=== PATIENT | female | born 1945 | race Caucasian/White ===

== ENCOUNTER 2016-09-13 11:12 | Emergency (ER) | payer MEDICARE ==
[2016-09-13] MEDS ORDERED: oxyCOD/ACETAMIN 5 MG/325 MG TABLET PO STA (12:13)
[2016-09-13] MEDS ORDERED: oxyCOD/ACETAMIN 5 MG/325 MG TABLET PO ONE (12:17)
== END 2016-09-13 13:51 | disposition home or self-care (01) ==
DX: G89.18 Other acute postprocedural pain (principal); M25.561 Pain in right knee; M79.89 Other specified soft tissue disorders; Z96.651 Presence of right artificial knee joint; Z76.0 Encounter for issue of repeat prescription
CPT/HCPCS: 93971; 99283; A9270

== ENCOUNTER 2016-11-14 11:07 | Outpatient (CLI) | payer MEDICARE | END 2016-11-14 11:08 | disposition home or self-care (01) | DX: E03.9 Hypothyroidism, unspecified (principal) ==

== ENCOUNTER 2017-02-09 06:04 | Outpatient (CLI) | payer MEDICARE ==
[2017-02-09 19:50] LABS: THYROID STIMULATING HORMONE 1.73 uIU/mL (0.34-5.60)
[2017-02-09 23:09] LABS: MAGNESIUM 2.3 mg/dL (1.7-2.8)
== END 2017-02-09 06:05 | disposition home or self-care (01) ==
LOC: LAB.F 06:04
PROVIDERS: ATTEND Physician Assistant Medical
DX: E53.8 Deficiency of other specified B group vitamins (principal); R19.7 Diarrhea, unspecified; R25.2 Cramp and spasm; R53.83 Other fatigue; E03.9 Hypothyroidism, unspecified
CPT/HCPCS: 36415; 82607; 82728; 83540; 83735; 84443; 84466

== ENCOUNTER 2017-05-19 14:47 | Outpatient (CLI) | payer MEDICARE ==
[2017-05-19 18:44] LABS: ALBUMIN/GLOBULIN RATIO 1.3 (1.0-2.2); BILIRUBIN,TOTAL 0.6 mg/dL (0.2-1.0); CALCIUM 9.1 mg/dL (8.5-10.3); CREATININE 0.9 mg/dL (0.4-1.0); POTASSIUM 3.7 mmol/L (3.5-5.0)
== END 2017-05-19 14:48 | disposition home or self-care (01) ==
LOC: LAB.F 14:47
PROVIDERS: ATTEND Physician Assistant Medical
DX: Z51.81 Encounter for therapeutic drug level monitoring (principal); Z79.899 Other long term (current) drug therapy
CPT/HCPCS: 36415; 80053

== ENCOUNTER 2017-05-21 11:51 | Outpatient (CLI) | payer MEDICARE ==
[~2017-05-21 11:51] MED LIST: GADOBUTROL 7.5 MMOL/7.5 ML VIAL ONE
[2017-05-21] MEDS ORDERED: GADOBUTROL 7.5 MMOL/7.5 ML VIAL IVP ONE (12:47)
--- NOTE | 2017-05-21 15:12 | MRI Report ---
EXAM: MRI BRAIN WITHOUT AND WITH CONTRAST EXAM DATE: 05/21/2017 12:47 PM. CLINICAL HISTORY: 72-year-old with history of migraines presenting with auditory hallucinations and m racquel deficits COMPARISON: MR brain 10/13/2013. TECHNIQUE: Multiplanar, multisequence T1-weighted and fluid-sensitive MR sequences of the brain were performed. Sequences optimized for routine evaluation. Other: None. Without and with IV Contrast: 7.5 cc GADAVIST. FINDINGS: Brain Volume: Normal for age. Parenchyma/Dura: No acute parenchymal hemorrhage, mass, or midline shift. Mild bilateral areas of T2/ FLAIR signal hyperintensity seen that appear similar to 10/13/2013.No areas of restricted diffusion to suggest acute infarct. No definite abnormal areas of susceptibility artifact. No abnormal post-contr ast enhancement. Pituitary: Normal. Ventricles/Cisterns: No definite abnormal extra-axial fluid collection/mass seen. Ventricles and sulc i appear age appropriate. Cisterns are patent. Fluid is seen within Meckel's caves. Visualized internal auditor al auditory canals appear clear. Sinuses: Mild mucosal thickening of the ethmoid air cells. Mastoid air cells and middle ear cavities appear clear. Orbits: Changes of bilateral lens replacement. Vasculature: Visualized major intracranial flow voids appear maintained. Dural sinuses appear patent. Bones: Normal. Other: None. IMPRESSION: 1. No definite acute infarct, intracranial hemorrhage, mass, hydrocephalus, or abnormal postcontrast enhancement. 2. Mild white matter changes that appear similar to MR 10/13/2013 and while nonspecific may represent sequela of chronic small vessel ischemic disease. [facility] Referring Provider Line: [phone] SITE ID: [id number]
== END 2017-05-21 11:52 | disposition home or self-care (01) ==
LOC: DI 11:51
PROVIDERS: ATTEND Physician Assistant Medical
DX: G43.909 Migraine, unspecified, not intractable, without status migrainosus (principal); R44.0 Auditory hallucinations; R41.3 Other amnesia; R25.1 Tremor, unspecified
CPT/HCPCS: 70553; A9585

== ENCOUNTER 2017-08-10 10:15 | Outpatient (CLI) | payer MEDICARE ==
[2017-08-10 19:09] LABS: CHOL/HDL RATIO 4.4 (<4.4); CHOLESTEROL 337 mg/dL; HDL CHOLESTEROL 77 mg/dL; LDL/HDL RATIO 2.9 (<4.4); TRIGLYCERIDES 183 mg/dL; VLDL CHOLESTEROL 37 mg/dL
== END 2017-08-10 10:16 | disposition home or self-care (01) ==
LOC: LAB.F 10:15
PROVIDERS: ATTEND Physician Assistant Medical
DX: E78.5 Hyperlipidemia, unspecified (principal)
CPT/HCPCS: 36415; 80061

== ENCOUNTER 2017-10-13 13:09 | Emergency (ER) | payer MEDICARE ==
[2017-10-13 14:25] LABS: BASOPHILS # (AUTO) 0.1 10^3/uL (0.0-0.1); BASOPHILS % (AUTO) 1.1 %; EOSINOPHILS # (AUTO) 0.2 10^3/uL (0.0-0.7); HGB - HEMOGLOBIN 13.3 g/dL (12.0-16.0); MEAN CORPUSCULAR HEMOGLOBIN 32.7 pg (27.0-31.0); MEAN CORPUSCULAR HGB CONC 34.1 g/dL (32.0-36.0); MEAN CORPUSCULAR VOLUME 95.8 fL (81.0-99.0); MEAN PLATELET VOLUME 8.2 fL (7.9-10.8); MONOCYTES # (AUTO) 0.7 10^3/uL (0.0-1.0); MONOCYTES % (AUTO) 11.1 %; NEUTROPHILS % (AUTO) 50.8 %; PLT - PLATELET COUNT 204 10^3/uL (130-450); RED BLOOD COUNT 4.06 10^6/uL (4.20-5.40)
[2017-10-13 14:35] LABS: ALBUMIN 3.7 g/dL (3.2-5.5); ALBUMIN/GLOBULIN RATIO 1.1 (1.0-2.2); BILIRUBIN,TOTAL 0.6 mg/dL (0.2-1.0); CALCIUM 9.4 mg/dL (8.5-10.3); CREATININE 0.9 mg/dL (0.4-1.0); TOTAL PROTEIN 7.1 g/dL (6.7-8.2)
--- NOTE | 2017-10-13 14:39 | XRAY Preliminary Report ---
Exam: XR CHEST 2 VIEW X-RAY IMPRESSION: Normal 2-view chest radiography. [facility] SITE ID: [id number]
--- NOTE | 2017-10-13 14:39 | XRAY Report ---
EXAM: CHEST RADIOGRAPHY EXAM DATE: 10/13/2017 02:29 PM. CLINICAL HISTORY: Chest pain. COMPARISON: 11/17/2013. TECHNIQUE: 2 views. FINDINGS: Lungs/Pleura: No focal opacities evident. No pleural effusion. No pneumothorax. Normal volumes. Mediastinum: Heart and mediastinal contours are unremarkable. Other: None. IMPRESSION: Normal 2-view chest radiography. [facility] Referring Provider Line: [phone] SITE ID: [id number]
--- NOTE | 2017-10-13 14:58 | ED Physician Documentation ---
PD HPI CHEST PAIN - Stated complaint Stated Complaint: CHEST PAIN - Chief complaint Chief Complaint: Cardiac - History obtained from History obtained from: Patient - History of Present Illness Timing - onset: Last night Timing - onset during: Rest Timing - duration: Seconds, Minutes Timing - details: Intermittant Quality: Sharp Location: Substernal, Left chest Radiation: No: Jaw, Neck, Right upper extremity Improved by: Other (just went on its own) Associated symptoms: No: Shortness of air, Diaphoresis, Nausea, Vomiting, Feeling faint / dizzy, General Weakness, Palpitations, Cough Similar symptoms before: Has not had sx before Recently seen: Not recently seen Review of Systems Constitutional: denies: Fever, Chills Nose: denies: Rhinorrhea / runny nose, Congestion Throat: denies: Sore throat Respiratory: denies: Dyspnea, Cough, Wheezing GI: denies: Abdominal Pain, Abdominal Swelling, Nausea Skin: denies: Rash, Lesions Musculoskeletal: denies: Extremity swelling Neurologic: denies: Generalized weakness, Focal weakness, Numbness, Near syncope PD PAST MEDICAL HISTORY - Past Medical History Neuro: Headache/migraine AUTOMATIC PRESSER: Breast cancer Psych: Depression Musculoskeletal: Osteoarthritis - Past Surgical History Past Surgical History: Yes /AUTOMATIC PRESSER: Mastectomy - Present Medications Home Medications: Ambulatory Orders Medication Instructions Recorded Confirmed Buspirone HCl 0 mg PO .FREQ 01/20/13 09/13/16 Codeine/Butalbital/ASA/Caffein 1 each PO .FREQ 01/20/13 09/13/16 [Fiorinal-Cod [id number] Cap] Paroxetine HCl [Paxil] 0 mg PO .FREQA 01/20/13 09/13/16 Levothyroxine Sodium [Synthroid] 0 mg PO DAILY 09/13/16 09/13/16 Oxycodone HCl/Acetaminophen 2 each PO Q6H PRN #30 tablet 09/13/16 [Percocet 5-325 mg Tablet] oxyCODONE [Roxicodone] 2 tab PO Q4HR PRN 09/13/16 09/13/16 raNITIdine [Zantac] 1 tab PO BID 09/13/16 09/13/16 - Allergies Allergies/Adverse Reactions: Allergies Allergy/AdvReac Type Severity Reaction Status Date / Time No Known Drug Allergies Allergy Verified 10/13/17 13:20 - Social History Does the pt smoke?: No Smoking Status: Never smoker Does the pt drink ETOH?: Yes Does the pt have substance abuse?: No - Immunizations Immunizations are current?: Yes PD ED PE NORMAL - Vitals Vital signs reviewed: Yes - General General: Alert and oriented X 3, No acute distress, Well developed/nourished - HEENT HEENT: Pharynx benign - Neck Neck: Supple, no meningeal sign, No adenopathy - Cardiac Cardiac: RRR, No murmur - Respiratory Respiratory: Clear bilaterally, Other (no chestwall tenderness. ) - Abdomen Abdomen: Soft, Non tender - Derm Derm: Normal color, Warm and dry - Extremities Extremities: No deformity, No tenderness to palpate, No edema, No calf tenderness / cord - Neuro Neuro: Alert and oriented X 3, No motor deficit, Normal speech Results - Vitals Vitals: Oxygen O2 Source Room air - EKG (time done) 13:43 Rate: Rate (enter#) (63) Rhythm: NSR [place]: Normal Intervals: Normal NM QRS: Normal Ischemia: Normal ST segments. No: ST elevation c/w ischemia, ST depression - Labs Labs: Laboratory Tests 10/13/17 10/13/17 10/13/17 14:04 14:04 14:04 WBC 6.0 RBC 4.06 L Hgb 13.3 Hct 38.9 MCV 95.8 MCH 32.7 H MCHC 34.1 RDW 13.0 Plt Count 204 MPV 8.2 Neut # 3.0 Lymph # 2.0 [place] # 0.7 Eos # 0.2 Baso # 0.1 Absolute Nucleated RBC 0.00 Nucleated RBC % 0.0 Sodium 139 Potassium 4.1 Chloride 101 Carbon Dioxide 27 Anion Gap 11.0 BUN 13 Creatinine 0.9 Estimated GFR (MDRD) 62 L Glucose 84 Calcium 9.4 Total Bilirubin 0.6 AST 32 ALT 24 Alkaline Phosphatase 68 Troponin I < 0.04 Total Protein 7.1 Albumin 3.7 Globulin 3.4 Albumin/Globulin Ratio 1.1 Lipase 53 H - Rads (name of study) chest Radiology: Prelim report reviewed (normal) PD MEDICAL DECISION MAKING - ED course Complexity details: reviewed results, considered differential (intermittent fleeting chst pains. ), d/w patient Departure - Departure Disposition: 01 Home, Self Care Clinical Impression: Atypical chest pain Condition: Stable Record reviewed to determine appropriate education?: Yes Instructions: ED Chest Pain Atypical Unkn Cause Follow-Up: Bonnie Merida PA-C [Primary Care Provider] - Comments: Take some Aleve or ibuprofen 2 tablets twice daily for the next 5 or 6 days. Presume the pain you had was some inflammation in the chest wall around the lung related to the recent upper respiratory infection. No signs of more significant causes based on your EKG chest x-ray and blood tests. Recheck if not improved over the next few days or if you have worsening or other symptoms develop. Discharge Date/Time: 10/13/17 16:05
[2017-10-13] MEDS ORDERED: KETOROLAC 60 MG/2 ML VIAL IVP STA (15:21)
[2017-10-13 16:07] VITALS: BP 120/68
== END 2017-10-13 16:05 | disposition home or self-care (01) ==
LOC: ED 13:09
DX: R07.89 Other chest pain (principal); Z85.3 Personal history of malignant neoplasm of breast; Z90.10 Acquired absence of unspecified breast and nipple
CPT/HCPCS: 36415; 71046; 80053; 83690; 84484; 85025; 93005; 96374; 99283; 99284

== ENCOUNTER 2018-01-28 10:18 | Outpatient (CLI) | payer MEDICARE ==
[2018-01-28 18:16] LABS: BASOPHILS # (AUTO) 0.1 10^3/uL (0.0-0.1); BASOPHILS % (AUTO) 0.9 %; EOSINOPHILS # (AUTO) 0.2 10^3/uL (0.0-0.7); EOSINOPHILS % (AUTO) 2.8 %; HGB - HEMOGLOBIN 14.2 g/dL (12.0-16.0); LYMPHOCYTES # (AUTO) 1.9 10^3/uL (1.5-3.5); MEAN CORPUSCULAR HEMOGLOBIN 33.4 pg (27.0-31.0); MEAN CORPUSCULAR HGB CONC 33.4 g/dL (32.0-36.0); MEAN PLATELET VOLUME 8.9 fL (7.9-10.8); MONOCYTES # (AUTO) 0.6 10^3/uL (0.0-1.0); MONOCYTES % (AUTO) 9.9 %; NEUTROPHILS # (AUTO) 3.2 10^3/uL (1.5-6.6); NEUTROPHILS % (AUTO) 54.4 %; PLT - PLATELET COUNT 234 10^3/uL (130-450); RED BLOOD COUNT 4.26 10^6/uL (4.20-5.40); RED CELL DISTRIBUTION WIDTH 13.2 % (12.0-15.0); WHITE BLOOD COUNT 5.9 x10^3/uL (4.8-10.8)
[2018-01-28 18:39] LABS: ALBUMIN 3.8 g/dL (3.2-5.5); ALBUMIN/GLOBULIN RATIO 1.2 (1.0-2.2); ALKALINE PHOSPHATASE 67 IU/L (42-121); ALT ALANINE AMINOTRANSFERASE 33 IU/L (10-60); AST ASPARTATE AMINOTRANSFERASE 31 IU/L (10-42); BILIRUBIN,TOTAL 0.7 mg/dL (0.2-1.0); BUN - BLOOD UREA NITROGEN 15 mg/dL (6-20); CALCIUM 9.3 mg/dL (8.5-10.3); CARBON DIOXIDE - CO2 29 mmol/L (21-32); CHLORIDE 103 mmol/L (101-111); CHOL/HDL RATIO 4.3 (<4.4); CHOLESTEROL 299 mg/dL; CREATININE 0.8 mg/dL (0.4-1.0); GFR - MDRD 71 (>89); GLUCOSE 94 mg/dL (70-100); HDL CHOLESTEROL 70 mg/dL; LDL CHOLESTEROL,CALCULATED 197 mg/dL; LDL/HDL RATIO 2.8 (<4.4); SODIUM 140 mmol/L (135-145); VLDL CHOLESTEROL 32 mg/dL
== END 2018-01-28 10:19 | disposition home or self-care (01) ==
LOC: LAB.F 10:18
PROVIDERS: ATTEND Physician Assistant Medical
DX: E78.5 Hyperlipidemia, unspecified (principal); Z51.81 Encounter for therapeutic drug level monitoring; E03.9 Hypothyroidism, unspecified; Z79.899 Other long term (current) drug therapy
CPT/HCPCS: 36415; 80053; 80061; 83721; 84443; 85025

== ENCOUNTER 2018-05-06 12:58 | Outpatient (CLI) | payer MEDICARE ==
--- NOTE | 2018-05-18 09:30 | Mammography Report ---
Reason: SCREENING LEFT MAMMOGRAM. HX OF RIGHT MASTECTOMY Procedure Date: 05/06/2018 Accession Number: [id number] / [id number] Procedure: BENNY - Screening Mammo Dig LT CPT Code: FULL RESULT: EXAM: Screening Mammo Dig LT DATE: 05/06/2018 3:04 PM CLINICAL HISTORY: 73-year-old female with history of right breast cancer status post mastectomy. TECHNIQUE: Left breast CC and MLO views were obtained. COMPARISON: No comparisons are available at the time of interpretation. FINDINGS: The breasts demonstrate heterogeneously dense fibroglandular parenchyma bilaterally. Coarse typically benign calcifications are identified in the left breast. No suspicious masses, clustered microcalcifications, or regions of architectural distortion are identified. IMPRESSION: Benign findings RECOMMENDATION: Routine annual screening unless otherwise clinically indicated. If prior examinations are made available, an addendum could be issued comparing the current study to previous studies. BIRADS CATEGORY 2: Benign findings STANDARD QUALIFYING STATEMENTS: 1. This examination was not reviewed with the aid of Computer-Aided Detection (CAD). 2. A negative or benign imaging report should not delay biopsy if clinically suspicious findings are present. Consider surgical consultation if warrented. More than 5% of cancers are not identified by imaging. 3. Dense breasts may obscure an underlying neoplasm.
== END 2018-05-06 12:59 | disposition home or self-care (01) ==
LOC: DI 12:58
DX: Z12.31 Encounter for screening mammogram for malignant neoplasm of breast (principal); Z85.3 Personal history of malignant neoplasm of breast; Z90.11 Acquired absence of right breast and nipple

== ENCOUNTER 2018-11-03 15:05 | Outpatient (CLI) | payer MEDICARE ==
[2018-11-03 18:23] LABS: CREATININE 0.8 mg/dL (0.4-1.0)
== END 2018-11-03 15:06 | disposition home or self-care (01) ==
LOC: LAB.F 15:05
PROVIDERS: ATTEND Physician Assistant Medical
DX: Z01.812 Encounter for preprocedural laboratory examination (principal)
CPT/HCPCS: 36415; 82565

== ENCOUNTER 2019-01-11 11:29 | Outpatient (CLI) | payer MEDICARE ==
--- NOTE | 2019-01-11 13:33 | XRAY Report ---
Reason: ANKLE JOINT PAIN,RT Procedure Date: 01/11/2019 Accession Number: [id number] / [id number] Procedure: XR - Ankle 3 View RT CPT Code: FULL RESULT: EXAM: RIGHT ANKLE RADIOGRAPHY EXAM DATE: 01/11/2019 11:37 AM. CLINICAL HISTORY: Fall 3 weeks ago with right ankle pain and swelling. Pain is at the lateral malleolus. COMPARISON: None. TECHNIQUE: 3 views. FINDINGS: Bones: Normal. No fractures or bone lesions. Joints: Normal. No effusion. No subluxations. The ankle mortise is normally aligned. Soft Tissues: Soft tissue swelling is seen laterally. IMPRESSION: Soft tissue swelling with no fracture or dislocation detected. [facility]
== END 2019-01-11 11:30 | disposition home or self-care (01) ==
LOC: DI 11:29
PROVIDERS: ATTEND Physician Assistant Medical
DX: M25.571 Pain in right ankle and joints of right foot (principal); R22.41 Localized swelling, mass and lump, right lower limb

== ENCOUNTER 2019-03-24 14:01 | Outpatient (CLI) | payer OTHER, MEDICARE ==
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
== END 2019-03-24 14:02 | disposition home or self-care (01) ==
LOC: DI.S 14:01
PROVIDERS: ATTEND Chiropractor
DX: S20.219A Contusion of unspecified front wall of thorax, initial encounter (principal); M50.31 Other cervical disc degeneration, high cervical region; M47.812 Spondylosis without myelopathy or radiculopathy, cervical region; M43.12 Spondylolisthesis, cervical region
CPT/HCPCS: 72040

== ENCOUNTER 2019-06-17 14:14 | Outpatient (CLI) | payer MEDICARE ==
[2019-06-17 17:45] LABS: BASOPHILS % (AUTO) 0.7 %; EOSINOPHILS # (AUTO) 0.4 10^3/uL (0.0-0.7); EOSINOPHILS % (AUTO) 6.1 %; HGB - HEMOGLOBIN 13.7 g/dL (12.0-16.0); LYMPHOCYTES # (AUTO) 2.2 10^3/uL (1.5-3.5); LYMPHOCYTES % (AUTO) 36.7 %; MEAN CORPUSCULAR HEMOGLOBIN 31.3 pg (27.0-31.0); MEAN CORPUSCULAR HGB CONC 31.7 g/dL (32.0-36.0); MEAN CORPUSCULAR VOLUME 98.6 fL (81.0-99.0); MEAN PLATELET VOLUME 10.6 fL (7.9-10.8); MONOCYTES # (AUTO) 0.6 10^3/uL (0.0-1.0); MONOCYTES % (AUTO) 9.5 %; NEUTROPHILS # (AUTO) 2.8 10^3/uL (1.5-6.6); NEUTROPHILS % (AUTO) 46.7 %; PLT - PLATELET COUNT 284 10^3/uL (130-450); RED BLOOD COUNT 4.38 10^6/uL (4.20-5.40); RED CELL DISTRIBUTION WIDTH 12.4 % (12.0-15.0)
[2019-06-17 18:02] LABS: ALBUMIN 3.9 g/dL (3.2-5.5); ALBUMIN/GLOBULIN RATIO 1.2 (1.0-2.2); BILIRUBIN,TOTAL 0.8 mg/dL (0.2-1.0); CALCIUM 9.7 mg/dL (8.5-10.3); CREATININE 0.9 mg/dL (0.4-1.0); TOTAL PROTEIN 7.2 g/dL (6.7-8.2)
== END 2019-06-17 14:15 | disposition home or self-care (01) ==
LOC: LAB.S 14:14
PROVIDERS: ATTEND Physician Assistant Medical
DX: Z51.81 Encounter for therapeutic drug level monitoring (principal); Z79.899 Other long term (current) drug therapy; L71.0 Perioral dermatitis; L57.0 Actinic keratosis; E03.9 Hypothyroidism, unspecified
CPT/HCPCS: 36415; 80053; 84439; 84443; 85025

== ENCOUNTER 2019-11-14 13:24 | Outpatient (CLI) | payer MEDICARE | END 2019-11-14 13:25 | disposition home or self-care (01) | LOC: DI 13:24 | PROVIDERS: ATTEND Physician Assistant Medical | DX: I35.1 Nonrheumatic aortic (valve) insufficiency (principal); Z82.49 Family history of ischemic heart disease and other diseases of the circulatory system | CPT/HCPCS: 93306 ==

== ENCOUNTER 2020-02-22 10:24 | Outpatient (CLI) | payer MEDICARE ==
[2020-02-22 15:21] LABS: BASOPHILS % (AUTO) 0.6 %; EOSINOPHILS # (AUTO) 0.2 10^3/uL (0.0-0.7); EOSINOPHILS % (AUTO) 3.9 %; HGB - HEMOGLOBIN 14.4 g/dL (12.0-16.0); LYMPHOCYTES # (AUTO) 2.6 10^3/uL (1.5-3.5); LYMPHOCYTES % (AUTO) 42.4 %; MEAN CORPUSCULAR HEMOGLOBIN 32.4 pg (27.0-31.0); MEAN CORPUSCULAR VOLUME 98.2 fL (81.0-99.0); MEAN PLATELET VOLUME 10.8 fL (7.9-10.8); MONOCYTES # (AUTO) 0.6 10^3/uL (0.0-1.0); MONOCYTES % (AUTO) 10.3 %; NEUTROPHILS # (AUTO) 2.6 10^3/uL (1.5-6.6); NEUTROPHILS % (AUTO) 42.5 %; PLT - PLATELET COUNT 267 10^3/uL (130-450); RED BLOOD COUNT 4.44 10^6/uL (4.20-5.40); RED CELL DISTRIBUTION WIDTH 12.8 % (12.0-15.0); WHITE BLOOD COUNT 6.2 x10^3/uL (4.8-10.8)
[2020-02-22 15:47] LABS: ALBUMIN 4.3 g/dL (3.2-5.5); ALBUMIN/GLOBULIN RATIO 1.4 (1.0-2.2); ALKALINE PHOSPHATASE 79 IU/L (42-121); ALT ALANINE AMINOTRANSFERASE 19 IU/L (10-60); AST ASPARTATE AMINOTRANSFERASE 22 IU/L (10-42); BILIRUBIN,TOTAL 0.7 mg/dL (0.2-1.0); BUN - BLOOD UREA NITROGEN 16 mg/dL (6-20); CALCIUM 9.4 mg/dL (8.5-10.3); CARBON DIOXIDE - CO2 26 mmol/L (21-32); CHLORIDE 104 mmol/L (101-111); CHOL/HDL RATIO 5.2 (<4.4); CHOLESTEROL 312 mg/dL; CREATININE 0.8 mg/dL (0.4-1.0); GLUCOSE 105 mg/dL (70-100); HDL CHOLESTEROL 60 mg/dL; LDL CHOLESTEROL,CALCULATED 214 mg/dL; LDL/HDL RATIO 3.6 (<4.4); SODIUM 140 mmol/L (135-145); TOTAL PROTEIN 7.3 g/dL (6.7-8.2); VLDL CHOLESTEROL 38 mg/dL
== END 2020-02-22 10:25 | disposition home or self-care (01) ==
LOC: LAB.S 10:24
PROVIDERS: ATTEND Registered Nurse
DX: R63.4 Abnormal weight loss (principal); R53.83 Other fatigue; E03.9 Hypothyroidism, unspecified
CPT/HCPCS: 36415; 80053; 80061; 83721; 84443; 85025

== ENCOUNTER 2020-03-01 10:14 | Outpatient (CLI) | payer MEDICARE ==
[2020-03-01 15:34] LABS: BASOPHILS % (AUTO) 0.6 %; EOSINOPHILS # (AUTO) 0.2 10^3/uL (0.0-0.7); EOSINOPHILS % (AUTO) 3.9 %; HGB - HEMOGLOBIN 13.8 g/dL (12.0-16.0); LYMPHOCYTES % (AUTO) 40.1 %; MEAN CORPUSCULAR HGB CONC 32.4 g/dL (32.0-36.0); MEAN CORPUSCULAR VOLUME 98.8 fL (81.0-99.0); MEAN PLATELET VOLUME 11.1 fL (7.9-10.8); MONOCYTES # (AUTO) 0.6 10^3/uL (0.0-1.0); MONOCYTES % (AUTO) 10.8 %; NEUTROPHILS # (AUTO) 2.3 10^3/uL (1.5-6.6); NEUTROPHILS % (AUTO) 44.4 %; PLT - PLATELET COUNT 236 10^3/uL (130-450); RED BLOOD COUNT 4.31 10^6/uL (4.20-5.40); RED CELL DISTRIBUTION WIDTH 12.9 % (12.0-15.0); WHITE BLOOD COUNT 5.1 x10^3/uL (4.8-10.8)
[2020-03-01 16:14] LABS: ALBUMIN 4.2 g/dL (3.2-5.5); ALBUMIN/GLOBULIN RATIO 1.7 (1.0-2.2); ALKALINE PHOSPHATASE 69 IU/L (42-121); ALT ALANINE AMINOTRANSFERASE 17 IU/L (10-60); AST ASPARTATE AMINOTRANSFERASE 22 IU/L (10-42); BUN - BLOOD UREA NITROGEN 19 mg/dL (6-20); CALCIUM 9.4 mg/dL (8.5-10.3); CARBON DIOXIDE - CO2 26 mmol/L (21-32); CHLORIDE 104 mmol/L (101-111); CHOLESTEROL 278 mg/dL; CREATININE 0.8 mg/dL (0.4-1.0); GLUCOSE 102 mg/dL (70-100); HDL CHOLESTEROL 56 mg/dL; LDL CHOLESTEROL,CALCULATED 203 mg/dL; LDL/HDL RATIO 3.6 (<4.4); SODIUM 140 mmol/L (135-145); TOTAL PROTEIN 6.7 g/dL (6.7-8.2); VLDL CHOLESTEROL 19 mg/dL
[2020-03-01 16:17] LABS: THYROID STIMULATING HORMONE 0.59 uIU/mL (0.34-5.60)
[2020-03-01 16:31] LABS: CRP - C-REACTIVE PROTEIN < 1.0 mg/dL (0-1.0)
== END 2020-03-01 10:15 | disposition home or self-care (01) ==
LOC: LAB.S 10:14
PROVIDERS: ATTEND Registered Nurse
DX: R63.4 Abnormal weight loss (principal); R53.83 Other fatigue; E03.9 Hypothyroidism, unspecified; E78.5 Hyperlipidemia, unspecified; E53.8 Deficiency of other specified B group vitamins; Z20.828 Contact with and (suspected) exposure to other viral communicable diseases
CPT/HCPCS: 36415; 80053; 80061; 82607; 84443; 85025; 85651; 86140; 86480; 86769; U0004; 81599; 83721

== ENCOUNTER 2020-03-05 07:00 | Outpatient (CLI) | payer MEDICARE | END 2020-03-05 23:59 | disposition home or self-care (01) | LOC: LAB.R 07:00 | PROVIDERS: ATTEND Registered Nurse | DX: R63.4 Abnormal weight loss (principal) | CPT/HCPCS: 82705; 82710; 87177; 87209 ==

== ENCOUNTER 2020-03-09 14:04 | Outpatient (CLI) | payer MEDICARE ==
--- NOTE | 2020-03-09 14:31 | XRAY Report ---
PROCEDURE: Chest 2 View X-Ray INDICATIONS: Unintentional weight loss, fatigue TECHNIQUE: 2 view(s) of the chest. COMPARISON: None. FINDINGS: Surgical changes and devices: None. Lungs and pleura: No pleural effusions or pneumothorax. Lungs are clear. Mediastinum: Mediastinal contours are normal. Heart size is normal. Bones and chest wall: No suspicious bony abnormalities. Soft tissues appear unremarkable. IMPRESSION: No acute cardiopulmonary process demonstrated radiographically. Reviewed by: Bolivar Trimble MD on 03/09/2020 2:29 PM PDT Approved by: Bolivar Trimble MD on 03/09/2020 2:29 PM PDT Station ID: [id number]
== END 2020-03-09 14:05 | disposition home or self-care (01) ==
LOC: DI.S 14:04
PROVIDERS: ATTEND Registered Nurse
DX: R63.4 Abnormal weight loss (principal); R53.83 Other fatigue
CPT/HCPCS: 71046

== ENCOUNTER 2020-05-01 11:28 | Outpatient (CLI) | payer MEDICARE ==
--- NOTE | 2020-05-02 12:56 | Mammography Report ---
UNILATERAL LEFT DIGITAL SCREENING MAMMOGRAM 3D/2D: 05/01/2020 CLINICAL: Routine screening. Personal history of right breast cancer. Comparison is made to exam dated: 05/06/2018 mammogram - [facility]. There are sca ttered fibroglandular elements in left breast. No significant masses, calcifications, or other findings are seen in the breast. There has been no significant interval change. IMPRESSION: NEGATIVE There is no mammographic evidence of malignancy. A 1 year screening mammogram is recommended. This exam was interpreted at Station ID: [id number]. NOTE: For mammograms, a report in lay terms will be sent to the patient. Approximately 15% of breast malignancies will not be visualized mammographically. In the management of a palpable breast mass, a negative mammogram must not discourage biopsy of a clinically suspicious lesion. Electronically Signed By: Bolivar Trimble M.D., jr/marcia:05/02/2020 09:50:42 ACR BI-RADS Category 1: Negative 3341F PARENCHYMAL PATTERN: (A) - The breast(s) demonstrate(s) scattered fibroglandular densities. BI-RADS CATEGORY: (1) - 1 RECOMMENDATION: (ANNUAL) - Recommend routine annual screening mammography. [id number] 1 year screening LATERALITY: (B)
== END 2020-05-01 11:29 | disposition home or self-care (01) ==
LOC: DI 11:28
PROVIDERS: ATTEND Registered Nurse
DX: Z12.31 Encounter for screening mammogram for malignant neoplasm of breast (principal); Z85.3 Personal history of malignant neoplasm of breast
CPT/HCPCS: 77063

== ENCOUNTER 2020-05-25 05:19 | Emergency (ER) | payer MEDICARE ==
[2020-05-25] MEDS ORDERED: SODIUM CHLORIDE 0.9% 1,000 ML IV STA (05:32)
[2020-05-25 05:49] LABS: BASOPHILS % (AUTO) 0.6 %; EOSINOPHILS # (AUTO) 0.4 10^3/uL (0.0-0.7); EOSINOPHILS % (AUTO) 5.5 %; HGB - HEMOGLOBIN 13.9 g/dL (12.0-16.0); LYMPHOCYTES # (AUTO) 3.4 10^3/uL (1.5-3.5); LYMPHOCYTES % (AUTO) 47.5 %; MEAN CORPUSCULAR HEMOGLOBIN 33.2 pg (27.0-31.0); MEAN CORPUSCULAR VOLUME 97.6 fL (81.0-99.0); MEAN PLATELET VOLUME 10.4 fL (7.9-10.8); MONOCYTES # (AUTO) 0.7 10^3/uL (0.0-1.0); NEUTROPHILS # (AUTO) 2.6 10^3/uL (1.5-6.6); NEUTROPHILS % (AUTO) 36.1 %; PLT - PLATELET COUNT 225 10^3/uL (130-450); PT - PROTHROMBIN TIME 11.1 secs (9.9-12.6); RED BLOOD COUNT 4.19 10^6/uL (4.20-5.40); RED CELL DISTRIBUTION WIDTH 12.7 % (12.0-15.0); WHITE BLOOD COUNT 7.1 x10^3/uL (4.8-10.8)
[2020-05-25 06:00] LABS: ALBUMIN 3.9 g/dL (3.2-5.5); ALBUMIN/GLOBULIN RATIO 1.3 (1.0-2.2); BILIRUBIN,TOTAL 0.6 mg/dL (0.2-1.0); CALCIUM 9.1 mg/dL (8.5-10.3); CREATININE 0.9 mg/dL (0.4-1.0); TOTAL PROTEIN 6.8 g/dL (6.7-8.2)
--- NOTE | 2020-05-25 06:08 | ED Physician Documentation ---
History of Present Illness - Stated complaint Stated Complaint: CP/PRESSURE - Chief complaint Chief Complaint: Cardiac - History obtained from History obtained from: Patient - Additonal information Additional information: Patient comes emergency department complaining of 2 episodes of chest pressure, lasting about 30 minutes each, that have occurred tonight. She states the first one occurred while she was laying in bed around midnight 30, and was located on the left side of her chest. She states she noticed the feeling of pressure like somebody was sitting on her chest while she was lying on her side. She states she tried lying on her back and then on her other side but the pain did not seem to go away. She states there was nothing she did or didn't do specifically that affected the pressure, and ultimately, the pressure feeling went away on its own. Patient denies any radiation. No associated symptoms such as shortness of breath or nausea. She states that she had another episode around 3:00 which was more or less identical to the first one. She states that at that point, she began to Google what a heart attack in a woman feels like and became concerned, so decided to come in. Patient states that she has a history of hypothyroidism, GERD, and hypertension, but is otherwise healthy. She states that her father of an RI in his 70s, but was also plagued with quite a few other health problems, as well. She has an identical twin sister who has had an aortic valve replacement but is not aware of she herself ever been diagnosed with any sort of murmur or potential valvular issue. She states her brother just had a pacemaker placed. Patient denies smoking anytime recently. She states she smoked for 2 years in her 20s but none since. No cough or fever. Patient states she has been having episodes of lightheadedness and fatigue since September, and that she has undergone extensive work-up for this, but with no specific diagnosis yet. The patient states she was supposed to have a stress test here at our hospital as part of this work-up, but could not make the appointment and had to cancel. She states she is not gotten around to rescheduling yet. Patient states she currently has no discomfort and feels completely normal. No other complaints at this time. Review of Systems Ten Systems: 10 systems reviewed and negative Constitutional: reports: Fatigue (long-standing) Eyes: reports: Reviewed and negative Ears: reports: Reviewed and negative Nose: reports: Reviewed and negative Throat: reports: Reviewed and negative Cardiac: reports: Chest pain / pressure, Other (lightheadedness) Respiratory: reports: Reviewed and negative GI: reports: Reviewed and negative : reports: Reviewed and negative Skin: reports: Reviewed and negative Musculoskeletal: denies: Extremity pain, Extremity swelling Neurologic: reports: Reviewed and negative Psychiatric: reports: Reviewed and negative Endocrine: reports: Reviewed and negative Immunocompromised: reports: Reviewed and negative PD PAST MEDICAL HISTORY - Past Medical History Past Medical History: Yes 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 Psych: Depression Musculoskeletal: Osteoarthritis - Past Surgical History Past Surgical History: Yes /RECRUITER MANAGER: Mastectomy - Present Medications Home Medications: Ambulatory Orders Medication Instructions Recorded Confirmed Buspirone HCl 0 mg PO .FREQ 01/20/13 09/13/16 Codeine/Butalbital/ASA/Caffein 1 each PO .FREQ 01/20/13 09/13/16 [Fiorinal-Cod 07-10-203-40 Cap] PARoxetine HCl [Paxil] 0 mg PO .FREQA 01/20/13 09/13/16 Levothyroxine Sodium [Synthroid] 0 mg PO DAILY 09/13/16 09/13/16 Oxycodone HCl/Acetaminophen 2 each PO Q6H PRN #30 tablet 09/13/16 [Percocet 5-325 mg Tablet] oxyCODONE [Roxicodone] 2 tab PO Q4HR PRN 09/13/16 09/13/16 raNITIdine [Zantac] 1 tab PO BID 09/13/16 09/13/16 - Allergies Allergies/Adverse Reactions: Allergies Allergy/AdvReac Type Severity Reaction Status Date / Time No Known Drug Allergies Allergy Verified 05/25/20 05:31 - Social History Does the pt smoke?: No Smoking Status: Never smoker Does the pt drink ETOH?: Yes Does the pt have substance abuse?: No - Immunizations Immunizations are current?: Yes - POLST Patient has POLST: No PD ED PE NORMAL - Vitals Vital signs reviewed: Yes - General General: Alert and oriented X 3, No acute distress - HEENT HEENT: Atraumatic, PERRL, EOMI, Moist mucous membranes - Neck Neck: Supple, no meningeal sign - Cardiac Cardiac: RRR, No murmur, Strong equal pulses - Respiratory Respiratory: No respiratory distress, Clear bilaterally - Abdomen Abdomen: Soft, Non tender, Non distended - Derm Derm: Normal color, Warm and dry, No rash - Extremities Extremities: No deformity, No edema, No calf tenderness / cord - Neuro Neuro: Alert and oriented X 3 - Psych Psych: Normal mood, Normal affect Results - Vitals Vitals: Vital Signs - 24 hr 05/25/20 05/25/20 05/25/20 05:20 05:25 05:48 Temperature 36.4 C L Heart Rate 61 64 Respiratory 18 18 Rate Blood Pressure 158/60 H 150/76 H Blood Pressure 150/76 H [Left] Blood Pressure 151/78 H [Right] O2 Saturation 99 94 05/25/20 05/25/20 05/25/20 06:03 06:37 06:54 Temperature 36.1 C L 36.7 C Heart Rate 65 66 61 Respiratory 16 20 17 Rate Blood Pressure 151/78 H 157/68 H 155/62 H Blood Pressure [Left] Blood Pressure [Right] O2 Saturation 98 97 99 Oxygen O2 Source Room air - EKG (time done) 0524 Rate: Rate (enter#) (64) Rhythm: NSR [place]: Normal Intervals: Normal [place] QRS: Normal Ischemia: Normal ST segments, Non specific changes Compare to prior EKG: Old EKG unavailable Computer interpretation: Agree with computer - Labs Labs: Laboratory Tests 05/25/20 05/25/20 05/25/20 05:35 05:35 05:35 WBC 7.1 RBC 4.19 L Hgb 13.9 Hct 40.9 MCV 97.6 MCH 33.2 H MCHC 34.0 RDW 12.7 Plt Count 225 MPV 10.4 Neut # (Auto) 2.6 Lymph # (Auto) 3.4 [place] # (Auto) 0.7 Eos # (Auto) 0.4 Baso # (Auto) 0.0 Absolute Nucleated RBC 0.00 Nucleated RBC % 0.0 PT 11.1 INR 1.0 Sodium 141 Potassium 4.1 Chloride 104 Carbon Dioxide 25 Anion Gap 12.0 BUN 17 Creatinine 0.9 Estimated GFR (MDRD) 61 L Glucose 117 H Calcium 9.1 Total Bilirubin 0.6 AST 25 ALT 18 Alkaline Phosphatase 78 Troponin I High Sens B-Natriuretic Peptide Total Protein 6.8 Albumin 3.9 Globulin 2.9 Albumin/Globulin Ratio 1.3 Lipase 62 H 05/25/20 05/25/20 05:35 05:35 WBC RBC Hgb Hct MCV MCH MCHC RDW Plt Count MPV Neut # (Auto) Lymph # (Auto) [place] # (Auto) Eos # (Auto) Baso # (Auto) Absolute Nucleated RBC Nucleated RBC % PT INR Sodium Potassium Chloride Carbon Dioxide Anion Gap BUN Creatinine Estimated GFR (MDRD) Glucose Calcium Total Bilirubin AST ALT Alkaline Phosphatase Troponin I High Sens 9.5 B-Natriuretic Peptide 56 Total Protein Albumin Globulin Albumin/Globulin Ratio Lipase - Rads (name of study) chest xr Radiology: Final report received, EMP read indepedently, See rad report (neg) PD MEDICAL DECISION MAKING - ED course Complexity details: reviewed results, re-evaluated patient, considered differential, d/w patient ED course: The patient was given an aspirin and IV fluids and worked up with labs, EKG, and chest x-ray. The patient's initial work-up was negative. The pt is pending a repeat troponin at 2 hours at this time. The patient is chest pain-free at the time of this dictation and is signed out to Dr. Munoz, pending repeat troponin and final disposition.
[2020-05-25] MEDS ORDERED: ASPIRIN CHEW 81 MG TABLET PO STA (06:10)
--- NOTE | 2020-05-25 07:32 | XRAY Report ---
PROCEDURE: Chest 1 View X-Ray INDICATIONS: chest pain TECHNIQUE: One view of the chest was acquired. COMPARISON: 03/09/2020 FINDINGS: Surgical changes and devices: None. Lungs and pleura: No pleural effusions or pneumothorax. Lungs are clear. Mediastinum: Mediastinal contours appear normal. Heart size is normal. Bones and chest wall: No suspicious bony lesions. Overlying soft tissues appear unremarkable. IMPRESSION: No acute cardiopulmonary disease process. Reviewed by: Deborah Tee MD, PhD on 05/25/2020 7:31 AM PDT Approved by: Deborah Tee MD, PhD on 05/25/2020 7:31 AM PDT Station ID: [id number]
--- NOTE | 2020-05-25 08:46 | ED Physician Documentation ---
PD HPI CHEST PAIN - Stated complaint Stated Complaint: CP/PRESSURE - Chief complaint Chief Complaint: Cardiac - History obtained from History obtained from: Patient, Family - History of Present Illness Timing - onset: Enter time (299), Today Timing - onset during: Rest Timing - duration: Minutes (20-30) Timing - details: Abrupt onset, Now resolved Pain level max: 5 Pain level now: 0 Quality: Pressure Location: Substernal, Left chest Radiation: No: Jaw, Neck, Back, Abdominal, Left upper extremity, Right upper extremity Improved by: Rest Associated symptoms: No: Shortness of air, Diaphoresis, Nausea, Vomiting, Feeling faint / dizzy, General Weakness, Palpitations, Cough Similar symptoms before: Has not had sx before Recently seen: Not recently seen - Additional information Additional information: Previously well 75-year-old female with a history of breast cancer and a family history of heart disease has had two atypical episodes of chest pain without radiation or other secondary symptoms. Her symptoms have resolved and she feels normal. 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: Mastectomy - Present Medications Home Medications: Ambulatory Orders Medication Instructions Recorded Confirmed Buspirone HCl 0 mg PO .FREQ 01/20/13 09/13/16 Codeine/Butalbital/ASA/Caffein 1 each PO .FREQ 01/20/13 09/13/16 [Fiorinal-Cod 63-66-408-40 Cap] PARoxetine HCl [Paxil] 0 mg PO .FREQA 01/20/13 09/13/16 Levothyroxine Sodium [Synthroid] 0 mg PO DAILY 09/13/16 09/13/16 Oxycodone HCl/Acetaminophen 2 each PO Q6H PRN #30 tablet 09/13/16 [Percocet 5-325 mg Tablet] oxyCODONE [Roxicodone] 2 tab PO Q4HR PRN 09/13/16 09/13/16 raNITIdine [Zantac] 1 tab PO BID 09/13/16 09/13/16 - Allergies Allergies/Adverse Reactions: Allergies Allergy/AdvReac Type Severity Reaction Status Date / Time No Known Drug Allergies Allergy Verified 05/25/20 05:31 - Social History Does the pt smoke?: No Smoking Status: Never smoker Does the pt drink ETOH?: Yes Does the pt have substance abuse?: No - Immunizations Immunizations are current?: Yes - POLST Patient has POLST: No PD ED PE NORMAL - Vitals Vital signs reviewed: Yes (hypertensive with wide pulse pressure) - General General: Alert and oriented X 3, No acute distress, Well developed/nourished - HEENT HEENT: Atraumatic, PERRL, EOMI - Respiratory Respiratory: No respiratory distress - Derm Derm: Normal color, Warm and dry, No rash - Extremities Extremities: No deformity, No edema, No calf tenderness / cord - Neuro Neuro: Alert and oriented X 3, No motor deficit, No sensory deficit, Normal speech Eye Opening: Spontaneous Motor: Obeys Commands Verbal: Oriented GCS Score: 15 - Psych Psych: Normal mood, Normal affect Results - Vitals Vitals: Vital Signs - 24 hr 05/25/20 05/25/20 05/25/20 05:20 05:25 05:48 Temperature 36.4 C L Heart Rate 61 64 Respiratory 18 18 Rate Blood Pressure 158/60 H 150/76 H Blood Pressure 150/76 H [Left] Blood Pressure 151/78 H [Right] O2 Saturation 99 94 05/25/20 05/25/20 05/25/20 06:03 06:37 06:54 Temperature 36.1 C L 36.7 C Heart Rate 65 66 61 Respiratory 16 20 17 Rate Blood Pressure 151/78 H 157/68 H 155/62 H Blood Pressure [Left] Blood Pressure [Right] O2 Saturation 98 97 99 05/25/20 05/25/20 07:52 08:36 Temperature 36.2 C L Heart Rate 64 64 Respiratory 16 20 Rate Blood Pressure 139/66 H Blood Pressure [Left] Blood Pressure [Right] O2 Saturation 99 99 Oxygen O2 Source Room air - Labs Labs: Laboratory Tests 05/25/20 05/25/20 05/25/20 05:35 05:35 05:35 WBC 7.1 RBC 4.19 L Hgb 13.9 Hct 40.9 MCV 97.6 MCH 33.2 H MCHC 34.0 RDW 12.7 Plt Count 225 MPV 10.4 Neut # (Auto) 2.6 Lymph # (Auto) 3.4 [place] # (Auto) 0.7 Eos # (Auto) 0.4 Baso # (Auto) 0.0 Absolute Nucleated RBC 0.00 Nucleated RBC % 0.0 PT 11.1 INR 1.0 Sodium 141 Potassium 4.1 Chloride 104 Carbon Dioxide 25 Anion Gap 12.0 BUN 17 Creatinine 0.9 Estimated GFR (MDRD) 61 L Glucose 117 H Calcium 9.1 Total Bilirubin 0.6 AST 25 ALT 18 Alkaline Phosphatase 78 Troponin I High Sens B-Natriuretic Peptide Total Protein 6.8 Albumin 3.9 Globulin 2.9 Albumin/Globulin Ratio 1.3 Lipase 62 H 05/25/20 05/25/20 05/25/20 05:35 05:35 07:28 WBC RBC Hgb Hct MCV MCH MCHC RDW Plt Count MPV Neut # (Auto) Lymph # (Auto) [place] # (Auto) Eos # (Auto) Baso # (Auto) Absolute Nucleated RBC Nucleated RBC % PT INR Sodium Potassium Chloride Carbon Dioxide Anion Gap BUN Creatinine Estimated GFR (MDRD) Glucose Calcium Total Bilirubin AST ALT Alkaline Phosphatase Troponin I High Sens 9.5 11.5 B-Natriuretic Peptide 56 Total Protein Albumin Globulin Albumin/Globulin Ratio Lipase Procedures - IVC sono (time) 0844 Bedside IVC sono: IVC measures (cm) (1.49), IVC collapsed c insp (cm) (complete), Dehydration (est <500ml deficit afte one liter is in.) PD MEDICAL DECISION MAKING - ED course Complexity details: reviewed old records, reviewed results, re-evaluated patient, considered differential, d/w patient, d/w family ED course: 75-year-old female with 2 episodes of atypical chest pressure is symptom-free and has a negative work-up including 2- troponins negative chest x-ray negative electrocardiogram. She does have a family history of heart disease with a sister having had an aortic valve replaced and a brother having a pacer. The p atient herself has had an echocardiogram showing only some aortic regurgitation and sclerosis. She has been into see the doctor with feelings of fatigue and being out of shape. A exercise treadmill test has been recommended and scheduled the patient has not been able to complete this. This morning I have come into the case after her laboratory results are back and the patient has been administered a liter of saline and I have evaluated the patient with the bedside ultrasound finding that her IVC is still collapsing completely although starting at a normal size. My interpretation of this is, that the patient was dehydrated and she is only minimally dehydrated now. This may have contributed to presentation of symptoms and I encouraged the patient to hydrate more vigorously and to follow-up to have the exercise treadmill test done. Departure - Departure Disposition: 01 Home, Self Care Clinical Impression: Atypical chest pain, Dehydration Condition: Stable Instructions: ED Chest Pain Atypical Unkn Cause, ED Dehydration Follow-Up: Stephanie Rdz ARNP [Primary Care Provider] - Comments: Today these episodes of chest pain that you had did not cause any damage to your heart. We did find that your mildly dehydrated and this may contribute to symptoms developing. The recommendation is to have an exercise treadmill test done at your earliest convenience.In the meantime stay hydrated. If you develop new symptoms of chest pain or shortness of breath return to the emergency department immediately
[2020-05-25 09:01] VITALS: BP 136/69
== END 2020-05-25 09:07 | disposition home or self-care (01) ==
LOC: ED 05:19
DX: R07.89 Other chest pain (principal); E86.0 Dehydration; I10 Essential (primary) hypertension; Z82.49 Family history of ischemic heart disease and other diseases of the circulatory system; Z08 Encounter for follow-up examination after completed treatment for malignant neoplasm; Z85.3 Personal history of malignant neoplasm of breast; K21.9 Gastro-esophageal reflux disease without esophagitis; E03.9 Hypothyroidism, unspecified; Z87.891 Personal history of nicotine dependence
CPT/HCPCS: 36415; 71045; 80053; 83690; 83880; 84484; 85025; 85610; 93005; 96360; 99284; A9270

== ENCOUNTER 2021-03-16 14:46 | Outpatient (CLI) | payer MEDICARE ==
[2021-03-16 18:07] LABS: THYROID STIMULATING HORMONE 0.67 uIU/mL (0.34-5.60)
== END 2021-03-16 14:47 | disposition home or self-care (01) ==
LOC: LAB.S 14:46
PROVIDERS: ATTEND Registered Nurse
DX: E03.9 Hypothyroidism, unspecified (principal)
CPT/HCPCS: 36415; 84443

== ENCOUNTER 2022-05-02 12:07 | Outpatient (CLI) | payer MEDICARE | END 2022-05-02 12:08 | disposition EMS.NT | LOC: EMS 12:07 | DX: R07.89 Other chest pain (principal) ==

== ENCOUNTER 2022-05-02 16:25 | Emergency (ER) | payer MEDICARE ==
[2022-05-02 16:58] LABS: BASOPHILS # (AUTO) 0.1 10^3/uL (0.0-0.1); BASOPHILS % (AUTO) 0.6 %; EOSINOPHILS # (AUTO) 0.2 10^3/uL (0.0-0.7); EOSINOPHILS % (AUTO) 2.2 %; HCT - HEMATOCRIT 39.9 % (37.0-47.0); HGB - HEMOGLOBIN 13.3 g/dL (12.0-16.0); LYMPHOCYTES # (AUTO) 3.7 10^3/uL (1.5-3.5); LYMPHOCYTES % (AUTO) 46.9 %; MEAN CORPUSCULAR HEMOGLOBIN 31.8 pg (27.0-31.0); MEAN CORPUSCULAR HGB CONC 33.3 g/dL (32.0-36.0); MEAN CORPUSCULAR VOLUME 95.5 fL (81.0-99.0); MEAN PLATELET VOLUME 9.4 fL (7.9-10.8); MONOCYTES # (AUTO) 0.6 10^3/uL (0.0-1.0); NEUTROPHILS # (AUTO) 3.3 10^3/uL (1.5-6.6); NEUTROPHILS % (AUTO) 42.2 %; PLT - PLATELET COUNT 216 10^3/uL (130-450); RED BLOOD COUNT 4.18 10^6/uL (4.20-5.40); RED CELL DISTRIBUTION WIDTH 12.9 % (12.0-15.0); WHITE BLOOD COUNT 7.9 x10^3/uL (4.8-10.8)
--- NOTE | 2022-05-02 17:03 | XRAY Report ---
PROCEDURE: Chest 1 View X-Ray INDICATIONS: Chest Pain TECHNIQUE: One view of the chest was acquired. COMPARISON: 05/25/2020 FINDINGS: Surgical changes and devices: None. Lungs and pleura: No pleural effusions or pneumothorax. Lungs are clear. Mediastinum: Mediastinal contours appear normal. Heart size is normal. Bones and chest wall: No suspicious bony lesions. Overlying soft tissues appear unremarkable. IMPRESSION: No acute cardiopulmonary pathology. Reviewed by: Pa Bullard MD on 05/02/2022 5:02 PM PDT Approved by: Pa Bullard MD on 05/02/2022 5:02 PM PDT Station ID: [id number]
--- NOTE | 2022-05-02 17:07 | ED Physician Documentation ---
PD HPI ABD PAIN - Stated complaint Stated Complaint: CHEST PX - Chief complaint Chief Complaint: Cardiac - History obtained from History obtained from: Patient - Additional information Additional information: 77-year-old woman presents for evaluation of chest pain. She has a history of multiple family members with coronary disease and her sister has an aortic valve repair. She has had 3 episodes of chest pain in the last 3 months. They occur about monthly. They are fairly typical described as an elephant on my chest with radiation to the teeth on the right jaw. First episode was 2 months ago, she does not recall what she was doing when it started, lasted 5 to 10 minutes, then another episode about a month ago, similarly about 10 minutes. Today she had an episode while getting out of bed lasting 20 minutes at 1030 this morning. 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: Mastectomy - Present Medications Home Medications: Ambulatory Orders Medication Instructions Recorded Confirmed Buspirone HCl 0 mg PO .FREQ 01/20/13 09/13/16 Codeine/Butalbital/ASA/Caffein 1 each PO .FREQ 01/20/13 09/13/16 [Fiorinal-Cod 85-06-562-40 Cap] PARoxetine HCl [Paxil] 0 mg PO .FREQA 01/20/13 09/13/16 Levothyroxine Sodium [Synthroid] 0 mg PO DAILY 09/13/16 09/13/16 Oxycodone HCl/Acetaminophen 2 each PO Q6H PRN #30 tablet 09/13/16 [Percocet 5-325 mg Tablet] oxyCODONE [Roxicodone] 2 tab PO Q4HR PRN 09/13/16 09/13/16 raNITIdine [Zantac] 1 tab PO BID 09/13/16 09/13/16 Nitroglycerin [Nitrostat] 0.4 mg SL Q5MIN PRN #1 tab 05/02/22 - Allergies Allergies/Adverse Reactions: Allergies Allergy/AdvReac Type Severity Reaction Status Date / Time No Known Drug Allergies Allergy Verified 05/02/22 16:37 - Social History Does the pt smoke?: No Smoking Status: Never smoker Does the pt drink ETOH?: Yes Does the pt have substance abuse?: No - Immunizations Immunizations are current?: Yes - POLST Patient has POLST: No PD ED PE NORMAL - Vitals Vital signs reviewed: Yes - General General: Alert and oriented X 3, No acute distress - HEENT HEENT: Pharynx benign - Neck Neck: Supple, no meningeal sign, No bony TTP - Cardiac Cardiac: RRR, No murmur - Respiratory Respiratory: No respiratory distress, Clear bilaterally - Abdomen Abdomen: Non tender - Back Back: No CVA TTP, No spinal TTP - Derm Derm: Normal color, Warm and dry - Extremities Extremities: No edema, No calf tenderness / cord - Neuro Neuro: Alert and oriented X 3, Normal speech Results - Vitals Vitals: Vital Signs - 24 hr 05/02/22 05/02/22 16:34 17:45 Temperature 36.1 C L Heart Rate 75 74 Respiratory 18 17 Rate Blood Pressure 140/56 H 120/69 O2 Saturation 98 97 Oxygen O2 Source Room air - EKG (time done) 1632 Rate: Rate (enter#) (72) Rhythm: NSR [place]: Normal Intervals: Normal [place] QRS: Normal Ischemia: Normal ST segments - Labs Labs: Laboratory Tests 05/02/22 05/02/22 05/02/22 16:51 16:51 16:51 WBC 7.9 RBC 4.18 L Hgb 13.3 Hct 39.9 MCV 95.5 MCH 31.8 H MCHC 33.3 RDW 12.9 Plt Count 216 MPV 9.4 Neut # (Auto) 3.3 Lymph # (Auto) 3.7 H [place] # (Auto) 0.6 Eos # (Auto) 0.2 Baso # (Auto) 0.1 Absolute Nucleated RBC 0.00 Nucleated RBC % 0.0 Sodium 140 Potassium 4.2 Chloride 105 Carbon Dioxide 26 Anion Gap 9.0 BUN 25 H Creatinine 1.0 Estimated GFR (MDRD) 54 L Glucose 103 H Calcium 9.3 Total Bilirubin 0.5 AST 19 ALT 16 Alkaline Phosphatase 82 Troponin I High Sens 4.6 Total Protein 7.1 Albumin 3.8 Globulin 3.3 Albumin/Globulin Ratio 1.2 Lipase 65 H PD MEDICAL DECISION MAKING - ED course ED course: 77-year-old woman whose had about 1 episode of nonexertional but otherwise fairly typical chest pain over the last 3 months. She is pain-free here and EKG and biomarkers are negative. Given the time course and separation of symptoms I do not think she needs an inpatient work-up, but I did email her primary care nurse practitioner as she will need an expedited outpatient work-up. Departure - Departure Disposition: Home, Self Care Clinical Impression: Chest pain Condition: Good Record reviewed to determine appropriate education?: Yes Instructions: Angina Dc Prescriptions: Nitroglycerin [Nitrostat] 0.4 mg SL Q5MIN PRN #1 tab PRN Reason: Chest Pain Comments: Your testing today including basic blood work, EKG, troponin level, and chest x- ray are normal. That said, that does not mean that the pain that you have had is not angina and you will need further work-up. Call your primary care physician on Thursday for further evaluation and treatment to include potential stress testing and/or echocardiogram. Until told otherwise take a baby aspirin a day. I am also prescribing nitroglycerin to be taken if you develop recurrent pain, that said if you develop recurrent pain please return immediately for reevaluation. Discharge Date/Time: 05/02/22 17:52
[2022-05-02 17:12] LABS: ALBUMIN 3.8 g/dL (3.2-5.5); ALBUMIN/GLOBULIN RATIO 1.2 (1.0-2.2); BILIRUBIN,TOTAL 0.5 mg/dL (0.2-1.0); CALCIUM 9.3 mg/dL (8.5-10.3); POTASSIUM 4.2 mmol/L (3.5-5.0); TOTAL PROTEIN 7.1 g/dL (6.7-8.2)
[2022-05-02 17:46] VITALS: BP 120/69
== END 2022-05-02 17:52 | disposition home or self-care (01) ==
LOC: ED 16:25
DX: R07.9 Chest pain, unspecified (principal)
CPT/HCPCS: 36415; 80053; 83690; 84484; 85025; 93005; 99284

== ENCOUNTER 2022-06-27 11:47 | Outpatient (CLI) | payer MEDICARE ==
[2022-06-27 14:50] LABS: BASOPHILS % (AUTO) 0.5 %; EOSINOPHILS # (AUTO) 0.4 10^3/uL (0.0-0.7); EOSINOPHILS % (AUTO) 4.5 %; HCT - HEMATOCRIT 42.2 % (37.0-47.0); HGB - HEMOGLOBIN 13.3 g/dL (12.0-16.0); LYMPHOCYTES # (AUTO) 4.7 10^3/uL (1.5-3.5); LYMPHOCYTES % (AUTO) 57.8 %; MEAN CORPUSCULAR HEMOGLOBIN 30.6 pg (27.0-31.0); MEAN CORPUSCULAR HGB CONC 31.5 g/dL (32.0-36.0); MEAN CORPUSCULAR VOLUME 97.2 fL (81.0-99.0); MONOCYTES # (AUTO) 0.6 10^3/uL (0.0-1.0); MONOCYTES % (AUTO) 7.4 %; NEUTROPHILS # (AUTO) 2.4 10^3/uL (1.5-6.6); NEUTROPHILS % (AUTO) 29.7 %; PLT - PLATELET COUNT 251 10^3/uL (130-450); RED BLOOD COUNT 4.34 10^6/uL (4.20-5.40); WHITE BLOOD COUNT 8.2 x10^3/uL (4.8-10.8)
[2022-06-27 15:20] LABS: ALBUMIN/GLOBULIN RATIO 1.1 (1.0-2.2); ALKALINE PHOSPHATASE 98 IU/L (42-121); ALT ALANINE AMINOTRANSFERASE 15 IU/L (10-60); AST ASPARTATE AMINOTRANSFERASE 16 IU/L (10-42); BILIRUBIN,TOTAL 0.8 mg/dL (0.2-1.0); BUN - BLOOD UREA NITROGEN 21 mg/dL (6-20); CALCIUM 9.3 mg/dL (8.5-10.3); CARBON DIOXIDE - CO2 30 mmol/L (21-32); CHLORIDE 101 mmol/L (101-111); CHOL/HDL RATIO 4.8 (<4.4); CHOLESTEROL 298 mg/dL; CREATININE 1.1 mg/dL (0.4-1.0); GFR - MDRD 48 (>89); GLUCOSE 105 mg/dL (70-100); HDL CHOLESTEROL 62 mg/dL; LDL CHOLESTEROL,CALCULATED 198 mg/dL; LDL/HDL RATIO 3.2 (<4.4); POTASSIUM 4.2 mmol/L (3.5-5.0); SODIUM 139 mmol/L (135-145); TOTAL PROTEIN 7.5 g/dL (6.7-8.2); TRIGLYCERIDES 189 mg/dL; VLDL CHOLESTEROL 38 mg/dL
[2022-06-27 15:24] LABS: THYROID STIMULATING HORMONE 0.81 uIU/mL (0.34-5.60)
== END 2022-06-27 11:48 | disposition home or self-care (01) ==
LOC: LAB.S 11:47
PROVIDERS: ATTEND Registered Nurse
DX: E78.5 Hyperlipidemia, unspecified (principal); Z79.899 Other long term (current) drug therapy; E03.9 Hypothyroidism, unspecified
CPT/HCPCS: 36415; 80053; 80061; 83721; 84443; 85025

== ENCOUNTER 2022-10-13 13:26 | Outpatient (CLI) | payer MEDICARE | END 2022-10-13 23:59 | disposition critical access hospital (66) | LOC: EMS 13:26 | DX: R07.89 Other chest pain (principal) | CPT/HCPCS: A0425; A0429 ==

== ENCOUNTER 2022-10-13 14:02 | Emergency (ER) | payer MEDICARE ==
--- OUTSIDE RECORDS SUMMARY | 2022-10-13 14:20 | EXTERNAL MEDICAL SUMMARY RPT | Continuity of Care Document ---
:1945 Author Organization [facility] Address [address] [place] [address] Phone Care Team Providers Name Role Phone Deirdre Arminda Nobleson Unavailable Unavailable Allergies No information. Encounters No information. Functional Status No information. Immunizations No information. Medications date description facility 2022-09-09 00:00 [facility] 2022-08-26 00:00 [facility] 2022-09-09 00:00 [facility] 2022-08-26 00:00 [facility] 2022-08-26 00:00 [facility] 2022-08-26 00:00 aspirin [facility] 2022-09-09 00:00 aspirin [facility] 2022-08-26 00:00 aspirin [facility] 2022-09-09 00:00 aspirin [facility] 2022-09-09 00:00 [facility] 2022-09-09 00:00 [facility] 2022-08-26 00:00 [facility] 2022-08-26 00:00 [facility] 2022-09-09 00:00 [facility]oxetine [facility] 2022-08-26 00:00 [facility]oxetine [facility] 2022-09-09 00:00 [facility]oxetine [facility] 2022-08-26 00:00 [facility]uloxetine [facility] 2022-09-09 00:00 [facility]uloxetine [facility] 2022-08-26 00:00 [facility]uloxetine [facility] 2022-09-09 00:00 [facility]uloxetine [facility] 2022-08-26 00:00 [facility]oxetine [facility] 2022-09-09 00:00 [facility]oxetine [facility] 2022-08-26 00:00 aspirin [facility] 2022-09-09 00:00 aspirin [facility] 2022-08-26 00:00 erenumab[facility]e [facility] 2022-08-26 00:00 [facility]oxetine [facility] 2022-09-09 00:00 duloxetine [facility] 2022-09-09 00:00 [facility]ine [facility] 2022-08-26 00:00 duloxetine [facility] 2022-09-09 00:00 duloxetine [facility] 2022-08-26 00:00 [facility]uloxetine [facility] 2022-09-09 00:00 [facility]uloxetine [facility] Problems No information. Procedures No information. Results/Labs No information. Social History No information. Vital Signs No information.
--- NOTE | 2022-10-13 14:29 | ED Physician Documentation ---
PD HPI CHEST PAIN - Stated complaint Stated Complaint: CP - Chief complaint Chief Complaint: Cardiac - History obtained from History obtained from: Patient - History of Present Illness Timing - onset: How many hours ago (08 24/2), Today Timing - onset during: Rest Timing - duration: Minutes Timing - details: Abrupt onset, Now resolved Quality: Tightness, Aching Location: Substernal, Right chest Radiation: No: Jaw, Neck, Back Worsened by: Movement. No: Inspiration, Eating, Palpation Associated symptoms: No: Shortness of air, Diaphoresis, Nausea, Feeling faint / dizzy Similar symptoms before: No diagnosis (she described intermittent chest pains to PCP and was rx nitroglycerin prn as needed. Patient says he has taken it infrequently for chest pains, none have been exertional, and it seems to help within short time. 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 - Present Medications Home Medications: Ambulatory Orders Medication Instructions Recorded Confirmed Buspirone HCl 0 mg PO .FREQ 01/20/13 10/13/22 PARoxetine HCL [Paxil] 0 mg PO .FREQA 01/20/13 10/13/22 Levothyroxine Sodium [Synthroid] 0 mg PO DAILY 09/13/16 10/13/22 Nitroglycerin [Nitrostat] 0.4 mg SL Q5MIN PRN #1 tab 05/02/22 10/13/22 Nitroglycerin [Nitrostat] 0.4 mg SL Q5MIN PRN #25 tablet 10/13/22 - Allergies Allergies/Adverse Reactions: Allergies Allergy/AdvReac Type Severity Reaction Status Date / Time No Known Drug Allergies Allergy Verified 10/13/22 14:09 - Social History Does the pt smoke?: No Smoking Status: Never smoker Does the pt drink ETOH?: Yes Does the pt have substance abuse?: No - Immunizations Immunizations are current?: Yes - POLST Patient has POLST: No Results - Vitals Vitals: Vital Signs - 24 hr 10/13/22 10/13/22 10/13/22 14:09 14:28 14:45 Temperature 36.8 C Heart Rate 71 86 68 Respiratory 16 15 16 Rate Blood Pressure 128/86 H 128/86 H 133/75 H O2 Saturation 99 98 99 10/13/22 10/13/22 10/13/22 15:15 15:45 16:19 Temperature Heart Rate 70 72 68 Respiratory 18 16 16 Rate Blood Pressure 133/75 H 136/74 H 180/88 H O2 Saturation 98 99 98 10/13/22 16:37 Temperature Heart Rate 88 Respiratory Rate Blood Pressure O2 Saturation Oxygen O2 Source Room air - EKG (time done) 14:23 Rate: Rate (enter#) (69) Rhythm: NSR [place]: Normal Intervals: Normal [place] QRS: Normal, Poor R wave progression Ischemia: Normal ST segments. No: ST elevation c/w ischemia, ST depression Compare to prior EKG: Unchanged from prior EKG (05/02/22) - Labs Labs: Laboratory Tests 10/13/22 10/13/22 10/13/22 14:37 14:37 14:37 WBC 8.3 RBC 4.29 Hgb 13.3 Hct 41.3 MCV 96.3 MCH 31.0 MCHC 32.2 RDW 13.0 Plt Count 242 MPV 9.4 Neut # (Auto) 3.8 Lymph # (Auto) 3.6 H [place] # (Auto) 0.6 Eos # (Auto) 0.2 Baso # (Auto) 0.1 Absolute Nucleated RBC 0.00 Nucleated RBC % 0.0 Sodium 138 Potassium 3.9 Chloride 103 Carbon Dioxide 30 Anion Gap 5.0 L BUN 24 H Creatinine 0.9 Estimated GFR (MDRD) 61 L Glucose 101 H Calcium 8.8 Total Bilirubin 0.8 AST 17 ALT 14 Alkaline Phosphatase 82 Troponin I High Sens 3.6 Total Protein 6.8 Albumin 3.7 Globulin 3.1 Albumin/Globulin Ratio 1.2 Lipase 60 H - Rads (name of study) chest xray Radiology: Prelim report reviewed, EMP read indepedently (no cardiopulmonary abnormality on imaging.), See rad report PD Medical Decision Making - ED course Reviewed Lab Results: patient had eCHO in which showed EF 55-60% and normal wall motion, with minimal aortic regurg. Had er visit 05/02/22 for chest pain with normal eval at that time. ECG today and torponin are normal. She does not have exam or risk factors to suggest PE. CXR without effusion/ PTX/ infiltrates. So several fitzpatrick causes are excluded. Consider intermittent reflux or muscular. Symptom episodes infrequent but are typical lying down or at rest remote from meals (as in when she hadn't eaten for awhile). no signs of more serious cause at this time. ED course: remains without symptoms while in the ER. Signifciant causes I feel have been excluded by history or testing. Departure - Departure Disposition: 01 Home, Self Care Clinical Impression: Chest pain Qualifiers: Chest pain type: unspecified Qualified Code(s): R07.9 - Chest pain, unspecified Condition: Stable Record reviewed to determine appropriate education?: Yes Instructions: ED Chest Pain Atypical Unkn Cause Follow-Up: Stephanie Rdz ARNP [Primary Care Provider] - Prescriptions: Nitroglycerin [Nitrostat] 0.4 mg SL Q5MIN PRN #25 tablet PRN Reason: Chest Pain Comments: Your chest x-ray appears normal with normal lung marshall and normal heart size. Your EKG and heart rhythm are good. Your blood test called troponin is normal so no signs of acute heart injury or heart failure. At this point its not clear the cause of your pain. Blood tests associated with pancreas and liver are normal as well. Consideration can be intermittent reflux or potential gallbladder spasms or musculoskeletal. Its okay to continue use of the nitroglycerin with the episodes if it does seem to help it. Being nonexertional, it does not really sound like angina per se but nitroglycerin can help several other processes in the chest as well. Follow-up with your primary care if repetitive enough to be bothersome. No follow-up necessarily needed if the episodes are very infrequent. Discharge Date/Time: 10/13/22 16:38
[2022-10-13 14:41] LABS: BASOPHILS # (AUTO) 0.1 10^3/uL (0.0-0.1); BASOPHILS % (AUTO) 0.6 %; EOSINOPHILS # (AUTO) 0.2 10^3/uL (0.0-0.7); EOSINOPHILS % (AUTO) 2.9 %; HCT - HEMATOCRIT 41.3 % (37.0-47.0); HGB - HEMOGLOBIN 13.3 g/dL (12.0-16.0); LYMPHOCYTES # (AUTO) 3.6 10^3/uL (1.5-3.5); LYMPHOCYTES % (AUTO) 43.5 %; MEAN CORPUSCULAR HGB CONC 32.2 g/dL (32.0-36.0); MEAN CORPUSCULAR VOLUME 96.3 fL (81.0-99.0); MEAN PLATELET VOLUME 9.4 fL (7.9-10.8); MONOCYTES # (AUTO) 0.6 10^3/uL (0.0-1.0); MONOCYTES % (AUTO) 7.4 %; NEUTROPHILS # (AUTO) 3.8 10^3/uL (1.5-6.6); NEUTROPHILS % (AUTO) 45.4 %; PLT - PLATELET COUNT 242 10^3/uL (130-450); RED BLOOD COUNT 4.29 10^6/uL (4.20-5.40); WHITE BLOOD COUNT 8.3 x10^3/uL (4.8-10.8)
[2022-10-13 15:02] LABS: ALBUMIN 3.7 g/dL (3.2-5.5); ALBUMIN/GLOBULIN RATIO 1.2 (1.0-2.2); BILIRUBIN,TOTAL 0.8 mg/dL (0.2-1.0); CALCIUM 8.8 mg/dL (8.5-10.3); CREATININE 0.9 mg/dL (0.4-1.0); POTASSIUM 3.9 mmol/L (3.5-5.0); TOTAL PROTEIN 6.8 g/dL (6.7-8.2)
--- NOTE | 2022-10-13 15:02 | XRAY Report ---
PROCEDURE: Chest 1 View X-Ray INDICATIONS: Chest pain TECHNIQUE: One view of the chest was acquired. COMPARISON: 05/02/2022 FINDINGS: Surgical changes and devices: None. Lungs and pleura: No pleural effusions or pneumothorax. Lungs are clear. Mediastinum: Mediastinal contours appear normal. Heart size is normal. Bones and chest wall: No suspicious bony lesions. Overlying soft tissues appear unremarkable. IMPRESSION: No acute cardiopulmonary process demonstrated radiographically. Reviewed by: Bolivar Trimble MD on 10/13/2022 3:01 PM PST Approved by: Bolivar Trimble MD on 10/13/2022 3:01 PM [facility] Station ID: [id number]
[2022-10-13 16:19] VITALS: BP 180/88
== END 2022-10-13 16:38 | disposition home or self-care (01) ==
LOC: EDUNIT# → ED 14:02
DX: R07.89 Other chest pain (principal); Z79.899 Other long term (current) drug therapy; Z85.3 Personal history of malignant neoplasm of breast
CPT/HCPCS: 36415; 80053; 83690; 84484; 85025; 93005; 99284

== ENCOUNTER 2022-10-27 10:44 | Outpatient (CLI) | payer MEDICARE ==
[2022-10-27 15:49] LABS: BASOPHILS # (AUTO) 0.1 10^3/uL (0.0-0.1); BASOPHILS % (AUTO) 0.7 %; EOSINOPHILS # (AUTO) 0.3 10^3/uL (0.0-0.7); EOSINOPHILS % (AUTO) 3.6 %; HCT - HEMATOCRIT 42.7 % (37.0-47.0); HGB - HEMOGLOBIN 13.5 g/dL (12.0-16.0); LYMPHOCYTES # (AUTO) 4.9 10^3/uL (1.5-3.5); LYMPHOCYTES % (AUTO) 56.1 %; MEAN CORPUSCULAR HEMOGLOBIN 30.7 pg (27.0-31.0); MEAN CORPUSCULAR HGB CONC 31.6 g/dL (32.0-36.0); MONOCYTES # (AUTO) 0.6 10^3/uL (0.0-1.0); MONOCYTES % (AUTO) 6.9 %; NEUTROPHILS # (AUTO) 2.8 10^3/uL (1.5-6.6); NEUTROPHILS % (AUTO) 32.6 %; PLT - PLATELET COUNT 266 10^3/uL (130-450); RED CELL DISTRIBUTION WIDTH 13.2 % (12.0-15.0); WHITE BLOOD COUNT 8.7 x10^3/uL (4.8-10.8)
[2022-10-27 17:09] LABS: THYROID STIMULATING HORMONE 0.94 uIU/mL (0.34-5.60)
[2022-10-27 17:20] LABS: ALBUMIN 3.8 g/dL (3.2-5.5); ALBUMIN/GLOBULIN RATIO 1.1 (1.0-2.2); ALKALINE PHOSPHATASE 83 IU/L (42-121); ALT ALANINE AMINOTRANSFERASE 15 IU/L (10-60); AST ASPARTATE AMINOTRANSFERASE 16 IU/L (10-42); BILIRUBIN,TOTAL 0.5 mg/dL (0.2-1.0); BUN - BLOOD UREA NITROGEN 21 mg/dL (6-20); CALCIUM 9.4 mg/dL (8.5-10.3); CARBON DIOXIDE - CO2 30 mmol/L (21-32); CHLORIDE 106 mmol/L (101-111); CHOL/HDL RATIO 5.9 (<4.4); CHOLESTEROL 294 mg/dL; CREATININE 0.9 mg/dL (0.4-1.0); GFR - MDRD 61 (>89); GLUCOSE 109 mg/dL (70-100); HDL CHOLESTEROL 50 mg/dL; LDL CHOLESTEROL,CALCULATED 212 mg/dL; LDL/HDL RATIO 4.2 (<4.4); POTASSIUM 4.1 mmol/L (3.5-5.0); SODIUM 140 mmol/L (135-145); TOTAL PROTEIN 7.2 g/dL (6.7-8.2); TRIGLYCERIDES 161 mg/dL; VLDL CHOLESTEROL 32 mg/dL
== END 2022-10-27 10:45 | disposition home or self-care (01) ==
LOC: LAB.S 10:44
PROVIDERS: ATTEND Registered Nurse
DX: E78.5 Hyperlipidemia, unspecified (principal); G43.909 Migraine, unspecified, not intractable, without status migrainosus; E03.9 Hypothyroidism, unspecified; Z79.899 Other long term (current) drug therapy
CPT/HCPCS: 36415; 80053; 80061; 83721; 84443; 85025

== ENCOUNTER 2023-09-28 09:49 | Outpatient (CLI) | payer MEDICARE ==
[2023-09-28 14:38] LABS: BASOPHILS # (AUTO) 0.1 10^3/uL (0.0-0.1); BASOPHILS % (AUTO) 0.5 %; EOSINOPHILS # (AUTO) 0.2 10^3/uL (0.0-0.7); EOSINOPHILS % (AUTO) 1.8 %; HCT - HEMATOCRIT 40.8 % (37.0-47.0); HGB - HEMOGLOBIN 12.7 g/dL (12.0-16.0); LYMPHOCYTES # (AUTO) 4.1 10^3/uL (1.5-3.5); LYMPHOCYTES % (AUTO) 40.4 %; MEAN CORPUSCULAR HEMOGLOBIN 31.3 pg (27.0-31.0); MEAN CORPUSCULAR HGB CONC 31.1 g/dL (32.0-36.0); MEAN CORPUSCULAR VOLUME 100.5 fL (81.0-99.0); MEAN PLATELET VOLUME 9.9 fL (7.9-10.8); MONOCYTES # (AUTO) 1.1 10^3/uL (0.0-1.0); MONOCYTES % (AUTO) 10.5 %; NEUTROPHILS # (AUTO) 4.6 10^3/uL (1.5-6.6); NEUTROPHILS % (AUTO) 45.9 %; PLT - PLATELET COUNT 407 10^3/uL (130-450); RED BLOOD COUNT 4.06 10^6/uL (4.20-5.40); RED CELL DISTRIBUTION WIDTH 14.2 % (12.0-15.0); WHITE BLOOD COUNT 10.1 x10^3/uL (4.8-10.8)
[2023-09-28 14:54] LABS: INR 1.1 (0.8-1.2); PT - PROTHROMBIN TIME 12.4 secs (9.9-12.6)
[2023-09-28 15:32] LABS: ALBUMIN 3.6 g/dL (3.2-5.5); ALBUMIN/GLOBULIN RATIO 1.3 (1.0-2.2); BILIRUBIN,TOTAL 0.4 mg/dL (0.2-1.0); CALCIUM 8.7 mg/dL (8.5-10.3); CREATININE 0.9 mg/dL (0.6-1.3); POTASSIUM 3.9 mmol/L (3.5-4.5); TOTAL PROTEIN 6.4 g/dL (6.4-8.9)
== END 2023-09-28 09:50 | disposition home or self-care (01) ==
LOC: LAB.S 09:49
PROVIDERS: ATTEND Emergency Medicine
DX: K92.2 Gastrointestinal hemorrhage, unspecified (principal)
CPT/HCPCS: 36415; 80053; 85025; 85610

== ENCOUNTER 2023-10-10 18:48 | Outpatient (CLI) | payer MEDICARE | END 2023-10-10 18:49 | disposition critical access hospital (66) | LOC: EMS 18:48 | DX: R07.89 Other chest pain (principal); R53.1 Weakness; R11.0 Nausea | CPT/HCPCS: A0425; A0427 ==

== ENCOUNTER 2023-10-10 19:23 | Emergency (ER) | payer MEDICARE ==
--- NOTE | 2023-10-10 19:39 | ED Physician Documentation ---
PD HPI CHEST PAIN - Stated complaint Stated Complaint: CP, BACK TIGHTNESS - History obtained from History obtained from: Patient - Additional information Additional information: 78-year-old woman with no personal history of heart problems but does have a family history in that her identical twin has coronary disease and was stented about a year ago. She was at rest driving her car when she developed substernal chest pressure at 6 PM tonight radiating to the side and central chest and the left. She not short of breath. No pedal edema or calf pain. She swallowed a nitroglycerin at home after which she was briefly nauseous but did not vomit. Other than that she has not been nauseous. PD PAST MEDICAL HISTORY - Past Medical History [employer]: Breast cancer Psych: Depression Musculoskeletal: Osteoarthritis - Past Surgical History Past Surgical History: Yes /[employer]: Mastectomy - Present Medications Home Medications: Ambulatory Orders Medication Instructions Recorded Confirmed Buspirone HCl 0 mg PO .FREQ 01/20/13 10/13/22 PARoxetine HCL [Paxil] 0 mg PO .FREQA 01/20/13 10/13/22 Levothyroxine Sodium [Synthroid] 0 mg PO DAILY 09/13/16 10/13/22 Nitroglycerin [Nitrostat] 0.4 mg SL Q5MIN PRN #1 tab 05/02/22 10/13/22 Nitroglycerin [Nitrostat] 0.4 mg SL Q5MIN PRN #25 tablet 10/13/22 - Allergies Allergies/Adverse Reactions: Allergies Allergy/AdvReac Type Severity Reaction Status Date / Time No Known Drug Allergies Allergy Verified 10/10/23 19:49 - Social History Does the pt smoke?: No Smoking Status: Never smoker Does the pt drink ETOH?: Yes Does the pt have substance abuse?: No - Immunizations Immunizations are current?: Yes - POLST Patient has POLST: No PD ED PE NORMAL - Vitals Vital signs reviewed: Yes - General General: Alert and oriented X 3, No acute distress - Cardiac Cardiac: RRR, No murmur - Respiratory Respiratory: No respiratory distress, Clear bilaterally - Abdomen Abdomen: Non tender - Extremities Extremities: No edema, No calf tenderness / cord - Neuro Neuro: Alert and oriented X 3, Normal speech Results - Vitals Vitals: Vital Signs - 24 hr 10/10/23 10/10/23 19:37 20:41 Temperature 35.9 C L Heart Rate 68 68 Respiratory 18 18 Rate Blood Pressure 153/57 H 103/74 O2 Saturation 93 95 Oxygen O2 Source Room air - EKG (time done) 1925 EKG releavant findings:: EKG personally interpreted by author of this note. Relevant findings are: Rate: Rate (enter#) (65) Rhythm: NSR Laporte: Normal QRS: Low voltage Ischemia: Normal ST segments. No: ST elevation c/w ischemia - Labs Labs: Laboratory Tests 10/10/23 10/10/23 10/10/23 19:30 19:30 21:32 WBC 9.6 RBC 4.41 Hgb 13.7 Hct 43.0 MCV 97.5 MCH 31.1 H MCHC 31.9 L RDW 14.3 Plt Count 247 MPV 9.9 Neut # (Auto) Not Reportable Lymph # (Auto) Not Reportable Braxton # (Auto) Not Reportable Eos # (Auto) Not Reportable Baso # (Auto) Not Reportable Absolute Nucleated RBC Not Reportable Total Counted 100 Band Neuts % (Manual) 0 Reactive Lymphs % (Man) 22 Abnorm Lymph % (Manual) 0 Nucleated RBC % Not Reportable Neutrophils # (Manual) 3.0 Lymphocytes # (Manual) 6.1 H Monocytes # (Manual) 0.5 Eosinophils # (Manual) 0.0 Basophils # (Manual) 0.0 Differential Comment MANUAL DIFFERENTIAL Manual Slide Review Indicated Platelet Estimate NORMAL (130-450,000) Platelet Morphology NORMAL APPEARANCE RBC Morph Micro Appear NORMAL APPEARANCE Sodium 139 Potassium 3.6 Chloride 103 Carbon Dioxide 28 Anion Gap 8.0 BUN 14 Creatinine 1.0 Estimated GFR (MDRD) 54 L Glucose 109 H Calcium 9.2 Total Bilirubin 0.5 AST 16 ALT 15 Alkaline Phosphatase 103 Troponin I High Sens 3.7 3.2 Total Protein 7.0 Albumin 3.9 Globulin 3.1 Albumin/Globulin Ratio 1.3 Lipase 31 - Rads (name of study) 1v chest Relevant Findings:: Final report received, EMP independent interpretation of halie GUADARRAMA Medical Decision Making - ED course ED course: 78-year-old woman without coronary disease but with family history of same in id entical twin presents with acute chest pain. She has no ischemic findings on EKG. Nothing in the history or physical to suggest dissection or PE. Initial workup demonstrated nonischemic EKG, unremarkable CBC, unremarkable CMP and troponin, On recheck at 9:16 PM she is pain-free. Plan to repeat troponin at the 2-hour fabiana. Second troponin was flat from the first. She remained pain-free. Departure - Departure Disposition: 01 Home, Self Care Clinical Impression: Chest pain Qualifiers: Chest pain type: chest pain on breathing Qualified Code(s): R07.1 - Chest pain on breathing; R07.81 - Pleurodynia Condition: Good Record reviewed to determine appropriate education?: Yes Instructions: ED Chest Pain Atypical Unkn Cause Comments: You were seen tonight for chest pain episode that thankfully resolved. Cardiac testing including EKG and 2 sets of troponins were normal. Your x-ray was also normal. Given your family history though, I would recommend following up with your primary care physician with consideration for stress testing. Return for new or worsening symptoms.
[2023-10-10 19:51] LABS: BASOPHILS % (AUTO) 0.4 %; EOSINOPHILS % (AUTO) 1.4 %; HGB - HEMOGLOBIN 13.7 g/dL (12.0-16.0); LYMPHOCYTES % (AUTO) 55.2 %; MEAN CORPUSCULAR HEMOGLOBIN 31.1 pg (27.0-31.0); MEAN CORPUSCULAR HGB CONC 31.9 g/dL (32.0-36.0); MEAN CORPUSCULAR VOLUME 97.5 fL (81.0-99.0); MEAN PLATELET VOLUME 9.9 fL (7.9-10.8); MONOCYTES % (AUTO) 6.7 %; PLT - PLATELET COUNT 247 10^3/uL (130-450); RED BLOOD COUNT 4.41 10^6/uL (4.20-5.40); RED CELL DISTRIBUTION WIDTH 14.3 % (12.0-15.0); WHITE BLOOD COUNT 9.6 x10^3/uL (4.8-10.8)
[2023-10-10 20:16] LABS: SLIDE REVIEW? Indicated
[2023-10-10 20:18] LABS: ABNORMAL LYMPHS % (MANUAL) 0 %; BAND NEUTROPHILS % (MANUAL) 0 %
[2023-10-10 20:22] LABS: TROPONIN I HIGH SENSITIVITY 3.7 ng/L (2.3-14.8)
[2023-10-10 20:23] LABS: ALBUMIN 3.9 g/dL (3.2-5.5); ALBUMIN/GLOBULIN RATIO 1.3 (1.0-2.2); BILIRUBIN,TOTAL 0.5 mg/dL (0.2-1.0); CALCIUM 9.2 mg/dL (8.5-10.3); POTASSIUM 3.6 mmol/L (3.5-4.5)
[2023-10-10 20:24] LABS: LYMPHOCYTES # (MANUAL) 6.1 10^3/uL (1.5-3.5); LYMPHOCYTES % (MANUAL) 42 %; MONOCYTES # (MANUAL) 0.5 10^3/uL (0.0-1.0); REACTIVE LYMPHS % (MANUAL) 22 %
[2023-10-10 20:25] LABS: DIFFERENTIAL COMMENT MANUAL DIFFERENTIAL; PLATELET ESTIMATE, MANUAL NORMAL (130-450,000) (NORMAL); PLATELET MORPHOLOGY NORMAL APPEARANCE (NORMAL); RBC MORPHOLOGY (MULTIPLE) NORMAL APPEARANCE (NORMAL)
--- NOTE | 2023-10-10 20:43 | XRAY Report ---
PROCEDURE: Chest 1V INDICATIONS: Chest Pain TECHNIQUE: One view of the chest was acquired. COMPARISON: Similar prior plain film 10/13/2022 reviewed. FINDINGS: Surgical changes and devices: None. Lungs and pleura: No pleural effusions or pneumothorax. Lungs are clear except for a mild chronic i nterstitial prominence, previously present. Mediastinum: Mediastinal contours appear normal. Heart size is normal. Bones and chest wall: No suspicious bony lesions. Overlying soft tissues appear unremarkable. IMPRESSION: No acute cardiopulmonary process. Reviewed by: Hair Gordon MD on 10/10/2023 8:41 PM PST Approved by: Hair Gordon MD on 10/10/2023 8:41 PM PST Station ID: [id number]
[2023-10-10 20:49] VITALS: O2SAT 95
[2023-10-10 22:19] VITALS: BP 119/68
== END 2023-10-10 22:13 | disposition home or self-care (01) ==
LOC: EDUNIT# → ED 19:23
DX: R07.81 Pleurodynia (principal); R07.1 Chest pain on breathing; Z82.49 Family history of ischemic heart disease and other diseases of the circulatory system
CPT/HCPCS: 36415; 80053; 83690; 84484; 85025; 93005; 99283; 99284

== ENCOUNTER 2023-10-25 09:03 | Outpatient (CLI) | payer MEDICARE ==
--- NOTE | 2023-10-25 12:37 | Ultrasound Report ---
PROCEDURE: Abdomen Limited INDICATIONS: EPIGASTRIC PAIN TECHNIQUE: Real-time focused scanning was performed of the abdomen, with image documentation. COMPARISONS: None. FINDINGS: Liver: Liver is normal in size. Liver is increased in echogenicity. Gallbladder: Gallstones are present, largest measuring 1.4 cm. No gallbladder wall thickening or tanna cholecystic fluid. Negative sonographic Zamarripa sign. Biliary ducts: Intrahepatic bile ducts are non-dilated. Extrahepatic bile duct caliber measures 3 m m. Normal is 6-7 mm or less in diameter, or 10 mm or less post-cholecystectomy. Pancreas: Visualized portions of the pancreas are sonographically normal. Pancreatic tail is not wel l seen. Right kidney: Normal in size and echotexture. Right kidney measures 9.2 cm long. No hydronephrosis o r nephrolithiasis. No solid masses. No complex renal cystic lesions which require follow-up. IVC: Intrahepatic inferior vena cava is patent. Miscellaneous: No free abdominal fluid. IMPRESSION: 1.Cholelithiasis without evidence of acute cholecystitis. 2.Hepatic steatosis. Reviewed by: Steve Gallegos MD on 10/25/2023 12:36 PM PST Approved by: Steve Gallegos MD on 10/25/2023 12:36 PM PST Station ID: [id number]
== END 2023-10-25 09:04 | disposition home or self-care (01) ==
LOC: DI 09:03
PROVIDERS: ATTEND Surgery
DX: R10.13 Epigastric pain (principal); K80.20 Calculus of gallbladder without cholecystitis without obstruction; K76.0 Fatty (change of) liver, not elsewhere classified